=== PATIENT | female | born 1990 | race Caucasian/White ===

== ENCOUNTER 2016-10-07 14:33 | Emergency (ER) | payer MEDICAID, OTHER ==
[~2016-10-07] VITALS: Ht 160 cm; Wt 77.7 kg
[~2016-10-07 14:33] MED LIST: HYDR-643 PO; IBUP80TA PO; IBUPOTC PO; MOM30SS PO; OMEP20CA3 PO; PAXI10TA12 PO; PRIL20CA9 PO; RANI15TA PO; TYLENOL PD
--- NOTE | 2016-10-07 16:03 | REP ---
Duplex extremity venous ultrasound: Right lower extremity. History: Right calf pain. Findings: The deep veins are anechoic and fully compressible from the groin to the popliteal fossa in the right lower extremity. Color flow imaging is homogeneous. Spectral Doppler interrogation demonstrates intact respiratory variation in flow and normal manual augmentation of flow. There is no evidence of deep vein thrombosis. Impression: Negative right lower extremity duplex venous ultrasound. No evidence of deep vein thrombosis. Signed by Marco Antonio Delcid MD 10/07/2016 03:54 P
[2016-10-07 16:10] VITALS: BP 138/73
== END 2016-10-07 16:11 | disposition home or self-care (01) ==
LOC: M ED 14:33
DX: M25.561 Pain in right knee (principal); M79.661 Pain in right lower leg; F41.9 Anxiety disorder, unspecified; M54.9 Dorsalgia, unspecified; F17.200 Nicotine dependence, unspecified, uncomplicated; A69.20 Lyme disease, unspecified

== ENCOUNTER → 2017-06-30 | Outpatient (CLI) | payer OTHER | LOC: M RAD 09:52 | DX: M89.8X6 Other specified disorders of bone, lower leg (principal); R22.41 Localized swelling, mass and lump, right lower limb | CPT/HCPCS: 77075 ==

== ENCOUNTER → 2017-12-03 | Outpatient (CLI) | payer OTHER | LOC: M RAD 09:42 | DX: M89.8X6 Other specified disorders of bone, lower leg (principal) ==

== ENCOUNTER → 2018-01-25 | Outpatient (CLI) | payer OTHER ==
--- NOTE | 2018-01-26 10:00 | REP ---
MRI left ankle without contrast: History: Ligament strain. Comparison radiographs of the left foot are from May 14, 2015. Pain after recent fall. Technique: Axial, coronal and sagittal imaging planes are utilized. T1, proton density and T2-weighted scans were obtained with and without fat saturation in the usual fashion. MRI findings: There is marrow edema pattern in the distal and lateral aspect of the upper calcaneus. There is evidence of an avulsion chip fracture through the tip of the calcaneus with marrow edema on either side. There is some associated extraosseous soft tissue swelling here. The MR appearance is difficult to differentiate from accessory ossicle but there is no visible accessory ossicle on the radiographs from May 2015. This suggests a nondisplaced chip fracture. Cortical and medullary bone signal intensity are otherwise normal. There is no evidence of anterior talofibular ligament disruption. The anterior inferior tibiofibular ligament and the posterior talofibular and posterior inferior tibiofibular ligaments appear intact as well. Deltoid ligamentous complex has an intact appearance. The calcaneal fibular ligament is not well seen. No flexor or extensor tendinopathy is appreciated. Exam is otherwise unremarkable. Impression: Findings consistent with nondisplaced chip fracture of the anterior and lateral surface of the calcaneus. Associated soft tissue edema. Electronically Signed by Marco Antonio Delcid MD 01/26/2018 08:29 P
== END ==
LOC: M RAD 17:43
PROVIDERS: ATTEND Orthopaedic Surgery Sports Medicine
DX: S93.402D Sprain of unspecified ligament of left ankle, subsequent encounter (principal); X58.XXXD Exposure to other specified factors, subsequent encounter; Y92.89 Other specified places as the place of occurrence of the external cause

== ENCOUNTER → 2018-05-11 | Outpatient (REF) | payer OTHER | LOC: M SFHCLERA 18:35 | PROVIDERS: ATTEND Nurse Practitioner Family | DX: R68.89 Other general symptoms and signs (principal) ==

== ENCOUNTER → 2018-10-23 | Outpatient (REF) | payer OTHER | LOC: M SFHCLERA 09:44 | PROVIDERS: ATTEND Nurse Practitioner Family | DX: J02.9 Acute pharyngitis, unspecified (principal) ==

== ENCOUNTER → 2020-02-14 | Outpatient (REF) | payer OTHER | LOC: M LAB REF 17:06 | PROVIDERS: ATTEND Obstetrics & Gynecology | DX: Z34.82 Encounter for supervision of other normal pregnancy, second trimester (principal) | CPT/HCPCS: 86850; 86900; 86901; J2790 ==

== ENCOUNTER → 2020-03-28 | Outpatient (REF) | payer OTHER | LOC: M LAB REF 16:53 | PROVIDERS: ATTEND Obstetrics & Gynecology | DX: Z34.83 Encounter for supervision of other normal pregnancy, third trimester (principal); Z3A.00 Weeks of gestation of pregnancy not specified ==

== ENCOUNTER → 2021-07-08 | Outpatient (CLI) | payer OTHER ==
[~2021-07-08] MED LIST changes: +PROHANCE 279.3MG/ML 15ML VIAL As Ordered ONE
== END ==
LOC: M RAD 12:47
PROVIDERS: ATTEND Orthopaedic Surgery Hand Surgery
DX: M79.661 Pain in right lower leg (principal)
CPT/HCPCS: 73720; A9576

== ENCOUNTER → 2022-12-18 | Outpatient (REF) | payer OTHER ==
[~2022-12-18] MED LIST changes: -PAXI10TA12 PO; +PAXI10TA13 PO; -PROHANCE 279.3MG/ML 15ML VIAL As Ordered ONE
== END ==
LOC: M SFHCLERA 16:44
PROVIDERS: ATTEND Physician Assistant
DX: H92.03 Otalgia, bilateral (principal)